=== PATIENT | female | born 1950 | race Caucasian/White ===

== ENCOUNTER 2020-08-18 16:46 | Inpatient (IN) | payer MEDICARE, OTHER ==
[2020-08-18 17:02] VITALS: BMI 26.0
[2020-08-18] MEDS ORDERED: Acetaminophen 325 MG TAB PO PRN (18:13)
[2020-08-18] MEDS: Potassium Chloride 20 MEQ TAB PO SCH (20:25)
[2020-08-18] MEDS: busPIRone HCl 5 MG TAB PO SCH (20:25)
[2020-08-18] MEDS: Trospium 20 MG TAB PO SCH (20:25)
[2020-08-18] MEDS: Atorvastatin Calcium 40 MG TAB PO SCH (20:25)
[2020-08-18] MEDS: Calcium Carbonate 500 MG TAB PO SCH (20:26)
[2020-08-18] MEDS: Lisinopril 20 MG TAB PO SCH (20:26)
[2020-08-18] MEDS: Hydrochlorothiazide 25 MG TAB PO SCH (20:26)
--- NOTE | 2020-08-19 05:24 | HP ---
CHIEF COMPLAINT: Weakness. 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 Patient also has a history of carotid artery disease. The patient lives with a friend who assists her with her ADLs. She ambulates with the use of a quad cane and a walker. Patient was hospitalized at [facility] from 08/15 until 08/18/20. She presented there with onset of slurred speech and dizziness, that resolved during her hospitalization. She underwent a CT scan of the brain that showed evidence of a previous right-sided MCA distribution infarct. There were no acute findings and no evidence of a hemorrhage. She later underwent an MRI of the brain that showed encephalomalacia of the right cerebrum. She underwent an MRA that showed evidence of occlusion of the right internal carotid at its takeoff. The left carotid seemed to be patent and the vertebral arteries were patent. There were no new acute findings. Her echocardiogram showed ejection fraction of 60% to 65% and some diastolic dysfunction. The patient was started on Plavix and her metoprolol was stopped due to low blood pressure. She said she was much weaker than usual since this hospitalization and seemed to have loss of general functional capability. As a result, she was sent to [facility] for purpose of PT and OT in an effort to try to improve her functional capabilities. PAST MEDICAL HISTORY: Hospitalized at [facility] from 08/15 until 08/18 for TIA, presenting with slurred speech and dizziness. No evidence of acute ND, seen on studies listed above; acute infarct involving the right middle cerebral artery, leaving her with a left hemiparalysis with dense paralysis and contracture of the left arm. The patient has hypertension, hyperlipidemia. She has trouble with depression, urge incontinence. She has had a left hip fracture, requiring repair. She has had a right hemicolectomy, unsure of the reasons. She has had a left carotid endarterectomy, tubal ligation, cholecystectomy. She is a 1, para 1. PRESENT MEDICINES: 1. Plavix 75 mg daily. 2. Calcium 1000 mg at bedtime with calcium carbonate. 3. Atorvastatin 80 mg at bedtime. 4. Potassium chloride 20 mEq at bedtime. 5. Lisinopril, dosage not known. 6. Hydrochlorothiazide 25 mg at bedtime. 7. Aspirin 81 mg daily. 8. VESIcare 10 mg at bedtime. Patient was on: 1. Metoprolol tartrate 100 mg b.i.d. that was stopped. 2. Sertraline 50 mg daily. 3. BuSpar 10 mg b.i.d. 4. Lisinopril 20 mg daily. ALLERGIES: PENICILLIN, IODINE, IRON. REVIEW OF SYSTEMS: CONSTITUTIONAL: Patient denies any recent weight gain or loss. She does not think she has had any recent fever. HEAD AND NECK: Patient denies any problem with eyes, ears, nose, or throat. PULMONARY: No shortness of breath or cough. CARDIOVASCULAR: No chest pain. GI: No nausea or vomiting or diarrhea. : Patient has trouble with urinary incontinence. She sometimes has control, usually wears pull-up diapers. NEUROLOGIC: Patient has weakness on her left side, that is worse on the left arm, that arm is contracted against her side and at the elbow and the hand. She cannot use that left arm and she walks with aid of a quad cane or a walker. DERMATOLOGIC: No complaints. HABITS: Patient does not smoke. Alcohol, none. ADLs, patient lives with a friend who assists her with her ADLs; assists her with dressing, bathing, and with her instrumental ADLs. SOCIAL HISTORY: Patient is not , lives with a friend who helps her. During her hospitalization, her ZLBY-XDPXL-3 PCR, none was detected. This was done on 08/15. PHYSICAL EXAMINATION: GENERAL: Shows a pleasant 70-year-old white female, who is sitting up in bed, eating her supper with her right hand. She wears glasses and she is talkative, easy to understand, and appears in no distress. VITAL SIGNS: Show a temperature of 98.7, pulse 74, respirations 15, O2 saturation 97% on room air, blood pressure 136/76, her weight is 161. HEENT: Head is normocephalic and atraumatic. Ears, TMs are clear. Eyes, pupils are equal, round, and reactive. Sclerae nonicteric. Nose normal. Mouth and throat, the patient has poor dentition. Mucous membranes are moist. NECK: Carotids did not hear any bruits. Thyroid not enlarged. Neck is supple. LUNGS: Clear. HEART: Regular rate, no murmurs. ABDOMEN: Soft, no organomegaly. No areas of tenderness. EXTREMITIES: No edema. SKIN: No rash. NEUROLOGIC: Patient is alert, knows she is in [place]. She is oriented to person, situation, and time. She has a very dense paralysis on her left upper extremity with no movement. There is 90 degrees of flexion at the elbow and there is some flexion and contracture of the wrist and the fingers. She cannot move that left side. Her left leg is extremely weak and there is plantar flexion of the foot. IMPRESSION: 1. Weakness and deconditioning. a. History of weakness that has been exacerbated by recent hospitalization. 2. Transient ischemic attack. a. Hospitalized at [facility] from 08/15 until 08/18. b. Presented with slurred speech and dizziness, that is resolved. 3. Late effect of cerebrovascular accident. a. History of a right middle cerebral artery infarct, leaving her with a left hemiparalysis in 2004. b. Complicated by contractures of the left upper extremity. 4. Hypertension. 5. Hyperlipidemia. 6. Carotid artery disease. a. History of occlusion of the right internal carotid artery at its takeoff. b. Status post left carotid endarterectomy. 7. Depression and anxiety. 8. Hyperlipidemia. 9. Urge incontinence. PLAN: The patient has been admitted to the hospital for purpose of PT and OT. We will continue her same medication. We will restart her aspirin and continue her Plavix and place her on GI prophylaxis. We will have Occupational Therapy and PT work with arrangements for orthotics for her left forearm and hand due to the contractures. Job ID: [id number] [facility]
[2020-08-19 05:51] LABS: #Basophils 0.1 thou/uL (0.0-0.2); #Eosinphils 0.5 thou/uL (0.0-0.7); #Lymphocytes 2.9 thou/uL (1.20-3.40); #Monocytes 0.6 thou/uL (0.11-0.59); #Neutrophils 4.4 thou/uL (1.40-6.50); %Basophils 1.2 % (0.0-1.0); %Eosinophils 5.4 % (0.0-10.0); %Lymphocytes 34.1 % (21.0-51.0); %Monocytes 7.6 % (0.0-10.0); %Neutrophils 51.7 % (42.0-75.0); Hemoglobin 9.6 g/dL (12.0-16.0); Mean Corpuscular HGB CONC 33.1 g/dL (32.0-36.0); Mean Corpuscular Hemoglobin 31.3 pg (27.0-31.0); Mean Corpuscular Volume 94.6 fL (78.0-98.0); Mean Platelet Volume 8.4 fL (7.4-10.4); Platelet Count 209 thou/uL (130-400); RBC Distribution Width 11.3 % (11.5-14.5); Red Blood Cell (RBC) Count 3.07 mill/uL (4.20-5.40); White Blood Cell (WBC) Count 8.4 thou/uL (4.8-10.8)
[2020-08-19 06:05] LABS: ALT (SGPT) 8 U/L (8-55); AST (SGOT) 16 U/L (5-34); Albumin 3.8 g/dL (3.4-4.8); Alkaline Phosphatase 63 U/L (40-110); Anion Gap 15 mmol/L (10-20); BUN (Urea Nitrogen) 19 mg/dL (9.8-20.1); Bilirubin, Total 0.3 mg/dL (0.2-1.2); Calc. Creatinine Clearance 56 mL/min (70-130); Calcium 9.7 mg/dL (7.8-10.44); Carbon Dioxide 28 mmol/L (23-31); Cardiac Risk 2.6 (Less than 4.5); Chloride 100 mmol/L (98-107); Cholesterol 106 mg/dl (< 200 Desired); Estimated GFR-MDRD 50; Globulin 2.5 g/dL (2.4-3.5); Glucose 102 mg/dL (80-115); HDL Cholesterol 41 mg/dL (>60 Neg Risk); LDL Cholesterol, Calculated 38 mg/dL; Potassium 3.9 mmol/L (3.5-5.1); Protein, Total 6.3 g/dL (6.0-8.3); Sodium 139 mmol/L (136-145); Triglycerides 136 mg/dL (Less than 150)
[2020-08-19] MEDS: Aspirin 81 mg Enteric Coated Tablet PO SCH (09:51)
[2020-08-19] MEDS: busPIRone HCl 5 MG TAB PO SCH ×2 (09:51→21:18)
[2020-08-19] MEDS: Trospium 20 MG TAB PO SCH ×2 (09:52→21:18)
[2020-08-19] MEDS: Clopidogrel Bisulfate 75 MG TAB PO SCH (09:52)
--- NOTE | 2020-08-19 11:26 | PRG ---
DATE OF SERVICE: 08/19/2020 SUBJECTIVE: The patient is feeling a lot better. She said she slept good this morning. Yesterday, she was just worn out. PT and OT have had her up this morning. She was able to walk to the bathroom with her quad cane. OBJECTIVE: GENERAL: The patient is sitting up in a chair, is smiling, seems very happy and in no distress. VITAL SIGNS: Shows a temperature of 98.8, pulse 69, respirations 18, O2 saturation 96% on room air, blood pressure 118/66. LUNGS: Clear. HEART: Regular rate. NEUROLOGIC: The patient has a left hemiparesis with paralysis of the left upper arm and contractures. LABORATORY DATA: Shows H and H of and 9.6 and 29, white cell count 8400 with 52% segs, 34% lymphocytes and platelet count of 209. Sodium 139, potassium 3.9, BUN 19, creatinine 1.09, glucose 102. Liver panel normal. Cholesterol 106, triglycerides 136, LDL 38, HDL 41. TSH 1.5. ASSESSMENT: 1. Weakness and deconditioning. a. History of weakness from a previous stroke that has been exacerbated by recent hospitalization. b. Improved, ambulating this morning with the use of her quad cane as of 08/19. 2. Transient ischemic attack. a. Hospitalized at [facility] from 08/15 until 08/18. b. Presented with slurred speech and dizziness, that has resolved. c. Imaging including CT of the brain and MRI and MRA showed no acute changes. 3. Late effect of cerebral vascular accident. a. History of a right middle cerebral artery infarct leaving her with a left hemiparalysis in 2004. b. Complicated by contractures of the left upper extremity. 4. Hypertension. 5. Hyperlipidemia. 6. Carotid artery disease. a. History of occlusion of the right internal carotid artery at its takeoff. b. Status post left carotid endarterectomy. 7. Depression and anxiety, well controlled. 8. Urge incontinence. PLAN: The patient looks better this morning. We will continue PT and OT. We will arrange for an orthotic for her left arm. Job ID: [id number] [facility]
[2020-08-19] MEDS: Atorvastatin Calcium 40 MG TAB PO SCH (21:17)
[2020-08-19] MEDS: Hydrochlorothiazide 25 MG TAB PO SCH (21:18)
[2020-08-19] MEDS: Lisinopril 20 MG TAB PO SCH (21:19)
[2020-08-19] MEDS: Calcium Carbonate 500 MG TAB PO SCH (21:19)
[2020-08-19] MEDS: Potassium Chloride 20 MEQ TAB PO SCH (21:19)
[2020-08-20] MEDS: busPIRone HCl 5 MG TAB PO SCH ×2 (08:33→21:02)
[2020-08-20] MEDS: Aspirin 81 mg Enteric Coated Tablet PO SCH (08:33)
[2020-08-20] MEDS: Trospium 20 MG TAB PO SCH ×2 (08:33→21:02)
[2020-08-20] MEDS: Polyethylene Glycol 3350 17 GM Packet PO SCH (08:33)
[2020-08-20] MEDS: Clopidogrel Bisulfate 75 MG TAB PO SCH (08:33)
--- NOTE | 2020-08-20 14:16 | PRG ---
DATE OF SERVICE: 08/20/2020 SUBJECTIVE: The patient thinks she is doing very good. She said she had a good night. She is asking for something to help with her bowel movement. She has not had a bowel movement for 3 days. She is participating well with physical therapy. OBJECTIVE: GENERAL: The patient is in bed, but alert, talkative, appears comfortable, in no distress. VITAL SIGNS: Shows a temp of 97.9, pulse 96, respirations 18, blood pressure is 118/66, O2 saturation 97% on room air. LUNGS: Clear. HEART: Regular rate. NEUROLOGIC: The patient is alert, and oriented x3. She has a left hemiparalysis with contracture of the left upper extremities. ASSESSMENT: 1. Weakness and deconditioning. a. History of weakness from a previous stroke that has been exacerbated by recent hospitalization. b. Improved, ambulating with the use of a quad cane as of 08/20. 2. Transient ischemic attack. a. Hospitalized at [facility] from 08/15 until 08/18. b. Presented with slurred speech and dizziness that has resolved. c. Imaging including CT of the brain, MRI and MRA of the brain shows no acute changes. 3. Late effect of cerebrovascular accident. a. History of a right middle cerebral artery infarct leaving her with a left hemiparalysis that occurred in 2004. b. Complicated by contractures of the left upper extremities. 4. Hypertension. 5. Hyperlipidemia. 6. Carotid artery disease. a. History of occlusion of the right internal carotid artery at its takeoff. b. Status post left carotid arterectomy. 7. Depression and anxiety, well controlled. 8. Urge incontinence. 9. Constipation. PLAN: We will continue PT and OT. Continue present medicines. PT will arrange for patient get an orthotic for her left forearm and hand. We will start her on MiraLAX for the constipation. Job ID: [id number] [facility]
[2020-08-20] MEDS: Lisinopril 20 MG TAB PO SCH (21:00)
[2020-08-20] MEDS: Calcium Carbonate 500 MG TAB PO SCH (21:00)
[2020-08-20] MEDS: Potassium Chloride 20 MEQ TAB PO SCH (21:01)
[2020-08-20] MEDS: Hydrochlorothiazide 25 MG TAB PO SCH (21:01)
[2020-08-20] MEDS: Atorvastatin Calcium 40 MG TAB PO SCH (21:06)
[2020-08-21] MEDS: Polyethylene Glycol 3350 17 GM Packet PO SCH (09:20)
[2020-08-21] MEDS: Trospium 20 MG TAB PO SCH ×2 (09:20→20:48)
[2020-08-21] MEDS: Aspirin 81 mg Enteric Coated Tablet PO SCH (09:21)
[2020-08-21] MEDS: busPIRone HCl 5 MG TAB PO SCH ×2 (09:21→20:50)
[2020-08-21] MEDS: Clopidogrel Bisulfate 75 MG TAB PO SCH (09:21)
[2020-08-21] MEDS ORDERED: Milk Of Magnesia 30 ML UDCUP PO SCH (14:00)
[2020-08-21] MEDS: Potassium Chloride 20 MEQ TAB PO SCH (20:48)
[2020-08-21] MEDS: Calcium Carbonate 500 MG TAB PO SCH (20:48)
[2020-08-21] MEDS: Lisinopril 20 MG TAB PO SCH ×2 (20:48→20:50)
[2020-08-21] MEDS: Hydrochlorothiazide 25 MG TAB PO SCH (20:49)
[2020-08-21] MEDS: Atorvastatin Calcium 40 MG TAB PO SCH (20:50)
--- NOTE | 2020-08-22 07:20 | PRG ---
DATE OF SERVICE: 08/21/2020 SUBJECTIVE: The patient says she is doing better. She had a good night. She is doing better with her walking and doing better with her transfers. OBJECTIVE: GENERAL: The patient is sitting up in bed. She is alert, talkative. Looks very comfortable. VITAL SIGNS: Her temp is 98; pulse 108, earlier 103; respirations 18; O2 saturation 97% on room air; blood pressure 106/65. LUNGS: Clear. HEART: Regular rate. NEUROLOGIC: Patient alert and oriented x3. Speech normal. Patient has left hemiparalysis with contractures of the left upper extremity that is unchanged. ASSESSMENT: 1. Weakness and deconditioning. a. History of weakness from previous stroke that has been exacerbated by recent hospitalization for TIA. b. Improved. Ambulating with the use of a quad cane and transferring better as of 08/21. 2. Transient ischemic attack. a. Hospitalized at [facility] from 08/15 until 08/18. b. Presented with slurred speech and dizziness, that has resolved. c. Imaging including CT of the brain, MRI and MRA of the brain showed no acute changes. 3. Late effect of cerebrovascular accident. a. History of a right middle cerebral artery infarct leaving her with a left hemiparalysis that occurred in 2004. b. Complicated by contractures of the left upper extremity. 4. Hypertension. 5. Hyperlipidemia. 6. Carotid artery disease. a. History of occlusion of the right internal carotid artery at its takeoff. b. Status post left carotid endarterectomy. 7. Depression and anxiety, well controlled. 8. Urge incontinence. 9. Constipation. PLAN: The patient is making continual gradual progress. We will continue present care. Continue PT and OT. Job ID: [id number] [facility]
[2020-08-22] MEDS: Aspirin 81 mg Enteric Coated Tablet PO SCH (08:23)
[2020-08-22] MEDS: busPIRone HCl 5 MG TAB PO SCH ×2 (08:23→20:21)
[2020-08-22] MEDS: Clopidogrel Bisulfate 75 MG TAB PO SCH (08:23)
[2020-08-22] MEDS: Polyethylene Glycol 3350 17 GM Packet PO SCH ×2 (08:23→20:22)
[2020-08-22] MEDS: Trospium 20 MG TAB PO SCH ×2 (08:23→20:21)
[2020-08-22] MEDS ORDERED: Bisacodyl 5 MG TAB PO PRN (09:08)
[2020-08-22] MEDS: Calcium Carbonate 500 MG TAB PO SCH (20:21)
[2020-08-22] MEDS: Atorvastatin Calcium 40 MG TAB PO SCH (20:21)
[2020-08-22] MEDS: Potassium Chloride 20 MEQ TAB PO SCH (20:25)
[2020-08-22] MEDS: Hydrochlorothiazide 25 MG TAB PO SCH (20:25)
[2020-08-23] MEDS: Aspirin 81 mg Enteric Coated Tablet PO SCH (08:34)
[2020-08-23] MEDS: busPIRone HCl 5 MG TAB PO SCH ×2 (08:34→21:11)
[2020-08-23] MEDS: Trospium 20 MG TAB PO SCH ×2 (08:34→21:10)
[2020-08-23] MEDS: Polyethylene Glycol 3350 17 GM Packet PO SCH ×2 (08:34→21:10)
[2020-08-23] MEDS: Clopidogrel Bisulfate 75 MG TAB PO SCH (08:35)
[2020-08-23] MEDS: Fleet Enema 133 ML BOT PR SCH ×2 (09:24→18:54)
[2020-08-23] MEDS: Senokot S 8.6-50 MG TAB PO SCH ×2 (09:24→21:10)
--- NOTE | 2020-08-23 11:04 | PRG ---
DATE OF SERVICE: 08/23/2020 SUBJECTIVE: The patient says she has been doing great. Her main problem is she just has not had a bowel movement in quite a few days. She has started on MiraLAX and given dulcolax tablets yesterday without any help. Prior to that, she had been given a dose of milk of magnesia without any help. She denies any abdominal pain. She has had no nausea or vomiting. Her appetite has been pretty good. OBJECTIVE: GENERAL: The patient is alert, appears in no distress. She is sitting up in a wheelchair, smiling and appears very comfortable. VITAL SIGNS: Her temperature is 98.1, pulse 99, last evening 83, respirations 18, O2 saturation 97% on room air, blood pressure 119/71. LUNGS: Clear. HEART: Regular rate. NEUROLOGIC: The patient is alert, oriented x3 with left hemiparalysis with contractures in the left upper extremity unchanged. ASSESSMENT: 1. Weakness and deconditioning. a. History of weakness from previous stroke that has been exacerbated by recent hospitalization for TIA. b. Improved. Ambulating with the use of a quad cane and transferring better as of 08/23. 2. Transient ischemic attack. a. Hospitalized at [facility] from 08/15 until 08/18. b. Presented with slurred speech and dizziness that have resolved. c. Imaging including CT of the brain, MRI, and MRA of the brain showed no acute changes. 3. Late effect of cerebrovascular accident. a. History of a right middle cerebral artery infarct leaving her with a left hemiparalysis that occurred in 2004. b. Complicated by contractures of the left upper extremity. 4. Hypertension. 5. Hyperlipidemia. 6. Carotid artery disease. a. History of occlusion of the right internal carotid artery at its takeoff. b. Status post left carotid endarterectomy. 7. Depression and anxiety, well controlled. 8. Urge incontinence. 9. Constipation. PLAN: We will try Fleet enema. We will stop the dulcolax and use Senokot-S 2 b.i.d. and continue the MiraLAX. Job ID: [id number] [facility]
[2020-08-23] MEDS: Calcium Carbonate 500 MG TAB PO SCH (21:10)
[2020-08-23] MEDS: Atorvastatin Calcium 40 MG TAB PO SCH (21:10)
[2020-08-23] MEDS: Lisinopril 20 MG TAB PO SCH (21:11)
[2020-08-23] MEDS: Hydrochlorothiazide 25 MG TAB PO SCH (21:16)
[2020-08-24] MEDS: Potassium Chloride 20 MEQ TAB PO SCH (09:41)
[2020-08-24] MEDS: Polyethylene Glycol 3350 17 GM Packet PO SCH ×2 (09:42→20:20)
[2020-08-24] MEDS: busPIRone HCl 5 MG TAB PO SCH ×2 (09:43→20:20)
[2020-08-24] MEDS: Senokot S 8.6-50 MG TAB PO SCH ×3 (09:43→20:55)
[2020-08-24] MEDS: Clopidogrel Bisulfate 75 MG TAB PO SCH (09:43)
[2020-08-24] MEDS: Trospium 20 MG TAB PO SCH ×2 (09:43→20:19)
[2020-08-24] MEDS: Aspirin 81 mg Enteric Coated Tablet PO SCH (09:43)
--- NOTE | 2020-08-24 09:56 | PRG ---
DATE OF SERVICE: 08/24/2020 SUBJECTIVE: The patient says she is doing very good this morning. She has walked around from her room to the Physical Therapy Department using her quad cane. She is transferring a little better, was a little shaky this morning, but overall doing better. She says when she is discharged, she plans to go back to her home, where her friend stays with her and helps her as needed. She is very comfortable going back to this situation. The patient is on a NuStep, working her right arm and her legs. An orthotic has been ordered for her left forearm, but with the holidays and the COVID may be a delay in this coming in and may not get here during this hospitalization; if not, that will be obtained as an outpatient. OBJECTIVE: GENERAL: The patient is alert, appears very comfortable, in no distress. VITAL SIGNS: Her temperature is 97.9, pulse 88, respirations 18, O2 saturation 98% on room air, and blood pressure 122/70. LUNGS: Clear. HEART: Regular rate. NEUROLOGIC: Alert and oriented x3. The patient has left hemiparalysis with contractures of the left upper extremity. EXTREMITIES: Have no edema. ASSESSMENT: 1. History of weakness and deconditioning. a. History of weakness from previous stroke that has been exacerbated by recent hospitalization for transient ischemic attack. b. Improved, ambulating very well and stable with her quad cane and further as of 08/24. 2. Transient ischemic attack. a. Hospitalized at [facility] from 08/15 until 08/18. b. Presented with slurred speech and dizziness that has resolved. c. Imaging included CT of the brain, MRI and MRA of the brain that showed no acute changes. 3. Late effect of cerebrovascular accident. a. History of right middle cerebral artery infarct leaving her with left hemiparalysis that occurred in 2004. b. Complicated by contractures of the left upper extremity. 4. Hypertension. 5. Hyperlipidemia. 6. Carotid artery disease. a. History of occlusion of the right internal carotid artery at its takeoff. b. Status post left carotid endarterectomy. 7. Depression and anxiety, well controlled. 8. Urge incontinence. 9. Constipation. a. Very large bowel movement on 08/23/2020. PLAN: Continue present care. Continue PT and OT. The patient said she will be comfortable going back to her home with her friend, who helps take care of her. She is considering discharge on , 08/26. Job ID: [id number] [facility]
[2020-08-24] MEDS: Calcium Carbonate 500 MG TAB PO SCH (20:19)
[2020-08-24] MEDS: Hydrochlorothiazide 25 MG TAB PO SCH (20:19)
[2020-08-24] MEDS: Lisinopril 20 MG TAB PO SCH (20:19)
[2020-08-24] MEDS: Atorvastatin Calcium 40 MG TAB PO SCH (20:20)
[2020-08-25 07:15] VITALS: BP 101/64; TEMP 98
[2020-08-25] MEDS: Potassium Chloride 20 MEQ TAB PO SCH (08:33)
[2020-08-25] MEDS: Senokot S 8.6-50 MG TAB PO SCH (08:33)
[2020-08-25] MEDS: Trospium 20 MG TAB PO SCH (08:33)
[2020-08-25] MEDS: Polyethylene Glycol 3350 17 GM Packet PO SCH (08:33)
[2020-08-25] MEDS: Aspirin 81 mg Enteric Coated Tablet PO SCH (08:33)
[2020-08-25] MEDS: busPIRone HCl 5 MG TAB PO SCH (08:34)
[2020-08-25] MEDS: Clopidogrel Bisulfate 75 MG TAB PO SCH (08:34)
--- NOTE | 2020-08-25 13:41 | DIS ---
DATE OF ADMISSION: 08/18/2020 DATE OF DISCHARGE: 08/25/2020 FINAL DIAGNOSES: 1. Weakness and deconditioning. a. History of weakness from previous stroke that has been exacerbated by recent hospitalization for transient ischemic attack. b. Improving. Ambulating very well with her quad cane and transferring unassisted as of 08/25. 2. Transient ischemic attack. a. Hospitalized at [facility] from 08/15 until 08/18. b. Presented with slurred speech and dizziness that has resolved. c. Imaging included CT of the brain, MRI and MRA of the brain that showed no acute changes. 3. Late effect of cerebrovascular accident. a. History of a right middle cerebral artery infarct leaving her with a left hemiparesis that occurred in 2004. b. Complicated by contractures of the left upper extremitiy. 4. Hypertension. 5. Hyperlipidemia. 6. Carotid artery disease. a. History of occlusion of the right internal carotid artery at its takeoff. b. Status post left carotid endarterectomy. 7. Depression and anxiety, well controlled. 8. Urge incontinence. 9. Constipation. a. Controlled. SUMMARY: The patient is a 70-year-old white female, who has a history of hypertension, a previous right middle cerebral artery infarct 2004 that left her with left hemiparesis, contracture of the left upper extremity. She also has carotid artery disease with blockage of the right internal carotid at its takeoff and history of a left carotid endarterectomy. She lives at home with a friend, who assists her with her ADLs and she is ordinarily ambulatory with the use of a quad cane and able to transfer independently. She was hospitalized at [facility] from 08/15 until 08/18. She had gone into the hospital for slurred speech and dizziness. All that resolved during the hospitalization. She underwent a CT scan of the brain that showed evidence of a previous right-sided MCA distribution infarct. There were no acute findings and no evidence of hemorrhage. She later underwent an MRI of the brain and MRA that shows encephalomalacia of the right cerebrum. The MRA showed occlusion of the right internal carotid at its takeoff. She has had a previous left carotid endarterectomy and the vertebral arteries were patent. Her echocardiogram showed EF of 60% to 65% and showed some diastolic dysfunction. She was started on Plavix and her metoprolol was stopped due to low blood pressure. She was referred to to [facility] for continued PT and OT. During her hospitalization, her blood pressure was well controlled. Her O2 saturation was normal. Her COVID test was done at [facility] on 08/15/2020, the PCR was negative. During her hospitalization, she made very excellent progress with her physical therapy. She was walking up to 150 feet several times a day using a quad cane and was transferring without assistance. She did have some trouble with constipation and eventually with the MiraLAX and Senokot, bowels moved and she has had no problems since then. On 08/25, she was doing very well. Her blood pressure 101/64, pulse 78, and O2 saturation 95% on room air. Lungs, clear. Her condition improved such it felt like she could now be managed at home. She has a friend that she lives with and the friend assists her with her ADLs and she felt very comfortable with this situation. She would like home health to come out and assist her and continue with the in-home PT and OT. The patient will follow up with her primary care physician, Dr. Cheyanne Cardona in [place] in two weeks. DISPOSITION: DIET: Regular diet. No added salt. ACTIVITIES: Ambulate with the use of her quad cane. I have ordered an orthotic for her left hand and wrist due to the contractures. Ordered home health with in- home PT and OT. MEDICATIONS: 1. Acetaminophen 325 mg two every 4 hours as needed. 2. Aspirin 81 mg daily. 3. Atorvastatin 80 mg daily. 4. BuSpar 10 mg b.i.d. 5. Calcium carbonate 500 mg two at bedtime. 6. Clopidogrel 75 mg daily. 7. Hydrochlorothiazide 25 mg at bedtime. 8. Lisinopril 20 mg daily. 9. Pantoprazole 40 mg daily. 10. MiraLAX 17 g in 8 ounces water b.i.d. as needed. 11. Senokot S 1 to 2 b.i.d. as needed. 12. Sertraline 50 mg daily. 13. Vesicare 10 mg daily. FOLLOWUP: The patient will need to see her regular doctor in 2 weeks. CODE STATUS: Full code. Job ID: [id number] [facility]
== END 2020-08-25 12:12 | disposition home health service (06) | DRG 57 ==
LOC: MADMS 16:46
PROVIDERS: ADMIT Family Medicine; ATTEND Family Medicine
DX: I69.354 Hemiplegia and hemiparesis following cerebral infarction affecting left non-dominant side (principal); I10 Essential (primary) hypertension; R53.81 Other malaise; M24.59 Contracture, other specified joint; E78.5 Hyperlipidemia, unspecified; F32.9 Major depressive disorder, single episode, unspecified; F41.9 Anxiety disorder, unspecified; N39.41 Urge incontinence; K59.00 Constipation, unspecified; Z90.49 Acquired absence of other specified parts of digestive tract; Z98.51 Tubal ligation status; Z79.02 Long term (current) use of antithrombotics/antiplatelets; Z79.82 Long term (current) use of aspirin; Z88.0 Allergy status to penicillin; Z91.041 Radiographic dye allergy status
CPT/HCPCS: 80053; 80061; 84443; 85025

== ENCOUNTER 2021-09-15 17:51 | Inpatient (IN) | payer MEDICARE, MEDICAID ==
[2021-09-15 19:01] VITALS: BMI 24.4
[2021-09-15] MEDS ORDERED: Hydrochlorothiazide 25 MG TAB PO SCH (21:00)
[2021-09-15] MEDS: Atorvastatin Calcium 40 MG TAB PO SCH (21:25)
[2021-09-15] MEDS: Trospium 20 MG TAB PO SCH (21:25)
[2021-09-15] MEDS: Clotrimazole 1% Cream 15 GM TUBE TOP SCH (21:26)
[2021-09-15] MEDS: Montelukast Sodium 10 mg Tablet PO SCH (21:26)
[2021-09-15] MEDS: Carbidopa/Levodopa CR 50-200 mg Tablet PO SCH (21:28)
[2021-09-15] MEDS: Acetaminophen 325 MG TAB PO PRN (21:29)
[2021-09-15] MEDS: Potassium Chloride 20 MEQ TAB PO SCH (21:31)
[2021-09-15] MEDS: busPIRone HCl 5 MG TAB PO SCH (21:40)
[2021-09-16] MEDS: Acetaminophen 325 MG TAB PO PRN ×2 (04:35→09:58)
[2021-09-16] MEDS: Trospium 20 MG TAB PO SCH (09:38)
[2021-09-16] MEDS: Carbidopa/Levodopa CR 50-200 mg Tablet PO SCH ×2 (09:38→20:46)
[2021-09-16] MEDS: busPIRone HCl 5 MG TAB PO SCH ×2 (09:38→20:46)
[2021-09-16] MEDS: Aspirin 81 mg Enteric Coated Tablet PO SCH (09:38)
[2021-09-16] MEDS: Polyethylene Glycol 3350 17 GM Packet PO SCH (09:38)
[2021-09-16] MEDS: Clopidogrel Bisulfate 75 MG TAB PO SCH (09:39)
[2021-09-16] MEDS: Clotrimazole 1% Cream 15 GM TUBE TOP SCH ×2 (09:39→20:47)
[2021-09-16] MEDS: Potassium Chloride 20 MEQ TAB PO SCH (20:45)
[2021-09-16] MEDS: Atorvastatin Calcium 40 MG TAB PO SCH (20:45)
[2021-09-16] MEDS: Montelukast Sodium 10 mg Tablet PO SCH (20:45)
[2021-09-16] MEDS: Senokot S 8.6-50 MG TAB PO PRN (20:45)
[2021-09-17] MEDS: Carbidopa/Levodopa CR 50-200 mg Tablet PO SCH ×2 (08:26→20:41)
[2021-09-17] MEDS: Polyethylene Glycol 3350 17 GM Packet PO SCH (08:26)
[2021-09-17] MEDS: Aspirin 81 mg Enteric Coated Tablet PO SCH (08:26)
[2021-09-17] MEDS: Clopidogrel Bisulfate 75 MG TAB PO SCH (08:27)
[2021-09-17] MEDS: Clotrimazole 1% Cream 15 GM TUBE TOP SCH ×2 (08:27→20:44)
[2021-09-17] MEDS: busPIRone HCl 5 MG TAB PO SCH ×2 (08:27→20:42)
[2021-09-17] MEDS: Senokot S 8.6-50 MG TAB PO PRN (15:00)
[2021-09-17 20:03] LABS: SARS-CoV-2 PCR by NAA Not Detected (NotDetected)
[2021-09-17] MEDS: Potassium Chloride 20 MEQ TAB PO SCH (20:41)
[2021-09-17] MEDS: Atorvastatin Calcium 40 MG TAB PO SCH (20:42)
[2021-09-17] MEDS: Montelukast Sodium 10 mg Tablet PO SCH (20:42)
[2021-09-18] MEDS: Bisacodyl 10 MG SUPP PR PRN (05:19)
[2021-09-18 05:20] LABS: Hemoglobin 10.6 g/dL (12.0-16.0); Mean Corpuscular HGB CONC 31.8 g/dL (32.0-36.0); Mean Corpuscular Hemoglobin 26.1 pg (27.0-31.0); Mean Corpuscular Volume 82.1 fL (78.0-98.0); RBC Distribution Width 15.8 % (11.5-14.5); Red Blood Cell (RBC) Count 4.06 mill/uL (4.20-5.40); White Blood Cell (WBC) Count 8.9 thou/uL (4.8-10.8)
[2021-09-18 05:21] LABS: #Basophils 0.1 thou/uL (0.0-0.2); #Eosinphils 0.3 thou/uL (0.0-0.7); #Lymphocytes 2.3 thou/uL (1.20-3.40); #Monocytes 0.9 thou/uL (0.11-0.59); #Neutrophils 5.5 thou/uL (1.40-6.50); %Eosinophils 3.2 % (0.0-10.0); %Lymphocytes 25.2 % (21.0-51.0); %Monocytes 9.5 % (0.0-10.0); %Neutrophils 61.1 % (42.0-75.0); Mean Platelet Volume 7.8 fL (7.4-10.4); Platelet Count 230 thou/uL (130-400)
[2021-09-18 05:38] LABS: ALT (SGPT) 7 U/L (8-55); AST (SGOT) 23 U/L (5-34); Albumin 3.8 g/dL (3.4-4.8); Alkaline Phosphatase 70 U/L (40-110); Anion Gap 11 mmol/L (10-20); BUN (Urea Nitrogen) 14 mg/dL (9.8-20.1); Bilirubin, Total 0.5 mg/dL (0.2-1.2); Calc. Creatinine Clearance 63 mL/min (70-130); Calcium 10.4 mg/dL (7.8-10.44); Carbon Dioxide 29 mmol/L (23-31); Chloride 102 mmol/L (98-107); Globulin 2.7 g/dL (2.4-3.5); Glucose 101 mg/dL (80-115); Potassium 4.2 mmol/L (3.5-5.1); Protein, Total 6.5 g/dL (5.8-8.1); Sodium 138 mmol/L (136-145)
[2021-09-18] MEDS: Aspirin 81 mg Enteric Coated Tablet PO SCH (08:10)
[2021-09-18] MEDS: busPIRone HCl 5 MG TAB PO SCH ×2 (08:10→20:05)
[2021-09-18] MEDS: Acetaminophen 325 MG TAB PO PRN ×2 (08:10→20:06)
[2021-09-18] MEDS: Senokot S 8.6-50 MG TAB PO PRN ×2 (08:11→21:50)
[2021-09-18] MEDS: Carbidopa/Levodopa CR 50-200 mg Tablet PO SCH ×2 (08:11→20:06)
[2021-09-18] MEDS: Clotrimazole 1% Cream 15 GM TUBE TOP SCH ×2 (08:12→21:34)
[2021-09-18] MEDS: Clopidogrel Bisulfate 75 MG TAB PO SCH (08:12)
[2021-09-18] MEDS: Polyethylene Glycol 3350 17 GM Packet PO SCH (08:13)
[2021-09-18] MEDS: Potassium Chloride 20 MEQ TAB PO SCH (20:05)
[2021-09-18] MEDS: Atorvastatin Calcium 40 MG TAB PO SCH (20:05)
[2021-09-18] MEDS: Montelukast Sodium 10 mg Tablet PO SCH (20:06)
[2021-09-19] MEDS: busPIRone HCl 5 MG TAB PO SCH ×2 (07:47→20:42)
[2021-09-19] MEDS: Aspirin 81 mg Enteric Coated Tablet PO SCH (07:47)
[2021-09-19] MEDS: Clopidogrel Bisulfate 75 MG TAB PO SCH (07:48)
[2021-09-19] MEDS: Clotrimazole 1% Cream 15 GM TUBE TOP SCH ×2 (07:48→20:43)
[2021-09-19] MEDS: Carbidopa/Levodopa CR 50-200 mg Tablet PO SCH ×2 (07:48→20:43)
[2021-09-19] MEDS: Polyethylene Glycol 3350 17 GM Packet PO SCH (07:48)
[2021-09-19] MEDS: Senokot S 8.6-50 MG TAB PO PRN (08:00)
[2021-09-19] MEDS: Acetaminophen 325 MG TAB PO PRN ×2 (10:42→20:44)
[2021-09-19] MEDS: Bisacodyl 10 MG SUPP PR PRN (15:50)
[2021-09-19] MEDS ORDERED: Bisacodyl 10 MG SUPP PR PRN (16:45)
[2021-09-19] MEDS ORDERED: Senokot S 8.6-50 MG TAB PO PRN (16:46)
[2021-09-19] MEDS: Atorvastatin Calcium 40 MG TAB PO SCH (20:42)
[2021-09-19] MEDS: Montelukast Sodium 10 mg Tablet PO SCH (20:44)
[2021-09-19] MEDS: Potassium Chloride 20 MEQ TAB PO SCH (20:44)
[2021-09-20] MEDS: Clopidogrel Bisulfate 75 MG TAB PO SCH (08:14)
[2021-09-20] MEDS: busPIRone HCl 5 MG TAB PO SCH ×2 (08:14→20:14)
[2021-09-20] MEDS: Aspirin 81 mg Enteric Coated Tablet PO SCH (08:14)
[2021-09-20] MEDS: Carbidopa/Levodopa CR 50-200 mg Tablet PO SCH ×2 (08:15→20:14)
[2021-09-20] MEDS: Clotrimazole 1% Cream 15 GM TUBE TOP SCH ×2 (08:17→20:15)
[2021-09-20] MEDS: Polyethylene Glycol 3350 17 GM Packet PO SCH (08:17)
[2021-09-20] MEDS: Fluticasone Propionate Nasal Spray 16 gm Bottle NASAL SCH (10:16)
[2021-09-20] MEDS: Loratadine 10 MG TAB PO SCH (10:17)
[2021-09-20] MEDS: Acetaminophen 325 MG TAB PO PRN (20:13)
[2021-09-20] MEDS: Atorvastatin Calcium 40 MG TAB PO SCH (20:14)
[2021-09-20] MEDS: Potassium Chloride 20 MEQ TAB PO SCH (20:14)
[2021-09-20] MEDS: Montelukast Sodium 10 mg Tablet PO SCH (20:14)
[2021-09-21] MEDS: Clotrimazole 1% Cream 15 GM TUBE TOP SCH ×2 (08:24→20:13)
[2021-09-21] MEDS: Fluticasone Propionate Nasal Spray 16 gm Bottle NASAL SCH (08:24)
[2021-09-21] MEDS: Polyethylene Glycol 3350 17 GM Packet PO SCH (08:25)
[2021-09-21] MEDS: busPIRone HCl 5 MG TAB PO SCH ×2 (08:27→20:13)
[2021-09-21] MEDS: Aspirin 81 mg Enteric Coated Tablet PO SCH (08:27)
[2021-09-21] MEDS: Clopidogrel Bisulfate 75 MG TAB PO SCH (08:28)
[2021-09-21] MEDS: Carbidopa/Levodopa CR 50-200 mg Tablet PO SCH ×2 (08:28→20:15)
[2021-09-21] MEDS: Loratadine 10 MG TAB PO SCH (08:32)
[2021-09-21] MEDS: Atorvastatin Calcium 40 MG TAB PO SCH (20:13)
[2021-09-21] MEDS: Potassium Chloride 20 MEQ TAB PO SCH (20:13)
[2021-09-21] MEDS: Montelukast Sodium 10 mg Tablet PO SCH (20:15)
[2021-09-21] MEDS: Acetaminophen 325 MG TAB PO PRN (20:27)
[2021-09-22] MEDS: busPIRone HCl 5 MG TAB PO SCH ×2 (08:47→20:04)
[2021-09-22] MEDS: Aspirin 81 mg Enteric Coated Tablet PO SCH (08:48)
[2021-09-22] MEDS: Loratadine 10 MG TAB PO SCH (08:49)
[2021-09-22] MEDS: Clopidogrel Bisulfate 75 MG TAB PO SCH (08:49)
[2021-09-22] MEDS: Polyethylene Glycol 3350 17 GM Packet PO SCH (08:50)
[2021-09-22] MEDS: Carbidopa/Levodopa CR 50-200 mg Tablet PO SCH ×2 (08:50→20:06)
[2021-09-22] MEDS: Fluticasone Propionate Nasal Spray 16 gm Bottle NASAL SCH (10:02)
[2021-09-22] MEDS: Clotrimazole 1% Cream 15 GM TUBE TOP SCH ×2 (10:04→20:07)
[2021-09-22] MEDS: Acetaminophen 325 MG TAB PO PRN (19:42)
[2021-09-22] MEDS: Atorvastatin Calcium 40 MG TAB PO SCH (20:04)
[2021-09-22] MEDS: Potassium Chloride 20 MEQ TAB PO SCH (20:05)
[2021-09-22] MEDS: Montelukast Sodium 10 mg Tablet PO SCH (20:06)
[2021-09-23] MEDS: Aspirin 81 mg Enteric Coated Tablet PO SCH (08:39)
[2021-09-23] MEDS: busPIRone HCl 5 MG TAB PO SCH ×2 (08:40→20:56)
[2021-09-23] MEDS: Carbidopa/Levodopa CR 50-200 mg Tablet PO SCH ×2 (08:40→20:56)
[2021-09-23] MEDS: Clopidogrel Bisulfate 75 MG TAB PO SCH (08:42)
[2021-09-23] MEDS: Acetaminophen 325 MG TAB PO PRN ×3 (08:42→20:58)
[2021-09-23] MEDS: Fluticasone Propionate Nasal Spray 16 gm Bottle NASAL SCH (08:43)
[2021-09-23] MEDS: Clotrimazole 1% Cream 15 GM TUBE TOP SCH ×2 (08:43→20:57)
[2021-09-23] MEDS: Polyethylene Glycol 3350 17 GM Packet PO SCH (08:44)
[2021-09-23] MEDS: Loratadine 10 MG TAB PO SCH (08:50)
[2021-09-23] MEDS: Atorvastatin Calcium 40 MG TAB PO SCH (20:56)
[2021-09-23] MEDS: Montelukast Sodium 10 mg Tablet PO SCH (20:58)
[2021-09-23] MEDS: Potassium Chloride 20 MEQ TAB PO SCH (20:58)
[2021-09-24] MEDS: Carbidopa/Levodopa CR 50-200 mg Tablet PO SCH ×2 (08:28→21:00)
[2021-09-24] MEDS: busPIRone HCl 5 MG TAB PO SCH ×2 (08:28→21:01)
[2021-09-24] MEDS: Aspirin 81 mg Enteric Coated Tablet PO SCH (08:28)
[2021-09-24] MEDS: Acetaminophen 325 MG TAB PO PRN ×2 (08:29→21:14)
[2021-09-24] MEDS: Clopidogrel Bisulfate 75 MG TAB PO SCH (08:29)
[2021-09-24] MEDS: Polyethylene Glycol 3350 17 GM Packet PO SCH (08:30)
[2021-09-24] MEDS: Fluticasone Propionate Nasal Spray 16 gm Bottle NASAL SCH (08:33)
[2021-09-24] MEDS: Clotrimazole 1% Cream 15 GM TUBE TOP SCH ×2 (08:35→21:02)
[2021-09-24 19:40] LABS: SARS-CoV-2 PCR by NAA Not Detected (NotDetected)
[2021-09-24] MEDS: Potassium Chloride 20 MEQ TAB PO SCH (20:59)
[2021-09-24] MEDS: Montelukast Sodium 10 mg Tablet PO SCH (21:00)
[2021-09-24] MEDS: Atorvastatin Calcium 40 MG TAB PO SCH (21:01)
[2021-09-25] MEDS: busPIRone HCl 5 MG TAB PO SCH ×2 (08:52→20:13)
[2021-09-25] MEDS: Carbidopa/Levodopa CR 50-200 mg Tablet PO SCH ×2 (08:52→20:12)
[2021-09-25] MEDS: Aspirin 81 mg Enteric Coated Tablet PO SCH (08:52)
[2021-09-25] MEDS: Clopidogrel Bisulfate 75 MG TAB PO SCH (08:53)
[2021-09-25] MEDS: Acetaminophen 325 MG TAB PO PRN ×2 (08:53→20:17)
[2021-09-25] MEDS: Polyethylene Glycol 3350 17 GM Packet PO SCH (08:54)
[2021-09-25] MEDS: Clotrimazole 1% Cream 15 GM TUBE TOP SCH ×2 (08:55→20:21)
[2021-09-25] MEDS: Fluticasone Propionate Nasal Spray 16 gm Bottle NASAL SCH (08:58)
[2021-09-25] MEDS: Atorvastatin Calcium 40 MG TAB PO SCH (20:12)
[2021-09-25] MEDS: Montelukast Sodium 10 mg Tablet PO SCH (20:12)
[2021-09-25] MEDS: Potassium Chloride 20 MEQ TAB PO SCH (20:21)
[2021-09-26] MEDS: Clopidogrel Bisulfate 75 MG TAB PO SCH (08:19)
[2021-09-26] MEDS: Aspirin 81 mg Enteric Coated Tablet PO SCH (08:19)
[2021-09-26] MEDS: busPIRone HCl 5 MG TAB PO SCH ×2 (08:19→20:00)
[2021-09-26] MEDS: Carbidopa/Levodopa CR 50-200 mg Tablet PO SCH ×2 (08:19→20:02)
[2021-09-26] MEDS: Clotrimazole 1% Cream 15 GM TUBE TOP SCH ×2 (08:20→20:16)
[2021-09-26] MEDS: Fluticasone Propionate Nasal Spray 16 gm Bottle NASAL SCH (08:20)
[2021-09-26] MEDS: Polyethylene Glycol 3350 17 GM Packet PO SCH (08:20)
[2021-09-26] MEDS: Acetaminophen 325 MG TAB PO PRN (19:25)
[2021-09-26] MEDS: Atorvastatin Calcium 40 MG TAB PO SCH (20:01)
[2021-09-26] MEDS: Potassium Chloride 20 MEQ TAB PO SCH (20:01)
[2021-09-26] MEDS: Montelukast Sodium 10 mg Tablet PO SCH (20:12)
[2021-09-26] MEDS: Loratadine 10 MG TAB PO SCH (20:14)
[2021-09-27] MEDS: Fluticasone Propionate Nasal Spray 16 gm Bottle NASAL SCH (08:18)
[2021-09-27] MEDS: Polyethylene Glycol 3350 17 GM Packet PO SCH (08:18)
[2021-09-27] MEDS: busPIRone HCl 5 MG TAB PO SCH ×2 (08:19→20:27)
[2021-09-27] MEDS: Clopidogrel Bisulfate 75 MG TAB PO SCH (08:19)
[2021-09-27] MEDS: Aspirin 81 mg Enteric Coated Tablet PO SCH (08:19)
[2021-09-27] MEDS: Clotrimazole 1% Cream 15 GM TUBE TOP SCH ×2 (08:20→20:29)
[2021-09-27] MEDS: Carbidopa/Levodopa CR 50-200 mg Tablet PO SCH ×2 (08:20→20:28)
[2021-09-27] MEDS: Acetaminophen 325 MG TAB PO PRN ×2 (12:16→19:44)
[2021-09-27] MEDS: Loratadine 10 MG TAB PO SCH (12:17)
[2021-09-27] MEDS: Montelukast Sodium 10 mg Tablet PO SCH (20:26)
[2021-09-27] MEDS: Atorvastatin Calcium 40 MG TAB PO SCH (20:27)
[2021-09-27] MEDS: Potassium Chloride 20 MEQ TAB PO SCH (20:27)
[2021-09-28] MEDS: Aspirin 81 mg Enteric Coated Tablet PO SCH (08:37)
[2021-09-28] MEDS: busPIRone HCl 5 MG TAB PO SCH ×2 (08:37→20:06)
[2021-09-28] MEDS: Clopidogrel Bisulfate 75 MG TAB PO SCH (08:38)
[2021-09-28] MEDS: Carbidopa/Levodopa CR 50-200 mg Tablet PO SCH ×2 (08:43→20:07)
[2021-09-28] MEDS: Polyethylene Glycol 3350 17 GM Packet PO SCH (08:44)
[2021-09-28] MEDS: Clotrimazole 1% Cream 15 GM TUBE TOP SCH ×2 (08:44→20:11)
[2021-09-28] MEDS: Loratadine 10 MG TAB PO SCH (08:44)
[2021-09-28] MEDS: Fluticasone Propionate Nasal Spray 16 gm Bottle NASAL SCH (08:45)
[2021-09-28] MEDS: Acetaminophen 325 MG TAB PO PRN (20:04)
[2021-09-28] MEDS: Atorvastatin Calcium 40 MG TAB PO SCH (20:07)
[2021-09-28] MEDS: Potassium Chloride 20 MEQ TAB PO SCH (20:08)
[2021-09-28] MEDS: Montelukast Sodium 10 mg Tablet PO SCH (20:09)
[2021-09-29] MEDS: Acetaminophen 325 MG TAB PO PRN ×2 (04:57→09:03)
[2021-09-29 07:45] VITALS: BP 155/84; TEMP 98.1
[2021-09-29] MEDS: busPIRone HCl 5 MG TAB PO SCH (08:12)
[2021-09-29] MEDS: Aspirin 81 mg Enteric Coated Tablet PO SCH (08:12)
[2021-09-29] MEDS: Carbidopa/Levodopa CR 50-200 mg Tablet PO SCH (08:13)
[2021-09-29] MEDS: Clopidogrel Bisulfate 75 MG TAB PO SCH (08:13)
[2021-09-29] MEDS: Clotrimazole 1% Cream 15 GM TUBE TOP SCH (08:14)
[2021-09-29] MEDS: Polyethylene Glycol 3350 17 GM Packet PO SCH (08:14)
[2021-09-29] MEDS: Fluticasone Propionate Nasal Spray 16 gm Bottle NASAL SCH (08:14)
[2021-09-29] MEDS: Loratadine 10 MG TAB PO SCH (08:15)
== END 2021-09-29 11:15 | DRG 948 ==
LOC: MADMS 17:51
PROVIDERS: ADMIT Family Medicine; ATTEND Family Medicine
DX: R53.1 Weakness (principal); I69.354 Hemiplegia and hemiparesis following cerebral infarction affecting left non-dominant side; Z20.822 Contact with and (suspected) exposure to COVID-19; I10 Essential (primary) hypertension; G20 Parkinson's disease; D64.9 Anemia, unspecified; E78.5 Hyperlipidemia, unspecified; K59.00 Constipation, unspecified; R32 Unspecified urinary incontinence; Z66 Do not resuscitate; F32.A Depression, unspecified; F41.9 Anxiety disorder, unspecified; Z90.49 Acquired absence of other specified parts of digestive tract; Z98.51 Tubal ligation status; Z79.891 Long term (current) use of opiate analgesic; Z79.82 Long term (current) use of aspirin; Z79.02 Long term (current) use of antithrombotics/antiplatelets; Z79.899 Other long term (current) drug therapy; Z88.0 Allergy status to penicillin; Z88.8 Allergy status to other drugs, medicaments and biological substances; Z91.041 Radiographic dye allergy status
CPT/HCPCS: 36415; 80053; 83735; 85025; U0003; U0005